=== PATIENT | male | born 1980 ===

== ENCOUNTER 2017-08-01 10:25 | Outpatient (CLI) | payer OTHER | END 2017-08-01 10:35 | disposition home or self-care (01) | LOC: EDBD 10:25 → LAB 10:25 | DX: Z11.59 Encounter for screening for other viral diseases (principal) ==

== ENCOUNTER → 2017-08-01 | Outpatient (CLI) | payer OTHER | END | disposition home or self-care (01) | LOC: EDBD 08:57 → PPHC 08:57 | DX: Z00.00 Encounter for general adult medical examination without abnormal findings (principal) ==